=== PATIENT | female | born 1940 | race Caucasian/White ===

== ENCOUNTER 2023-05-24 11:55 | Outpatient (RCR) | payer MEDICARE, OTHER, SELFPAY | END 2023-05-24 23:59 | disposition home or self-care (01) | LOC: RPT 11:55 | PROVIDERS: ATTENDING PHYSICIAN Physician Assistant; PRIMARYCARE PHYSICIAN Internal Medicine Geriatric Medicine | DX: Z47.1 Aftercare following joint replacement surgery (principal); Z96.642 Presence of left artificial hip joint; R26.89 Other abnormalities of gait and mobility; Z73.6 Limitation of activities due to disability | CPT/HCPCS: 97110; 97112; 97116; 97530 ==

== ENCOUNTER 2023-06-20 09:59 | Outpatient (RCR) | payer MEDICARE, OTHER, SELFPAY | END 2023-06-20 23:59 | disposition home or self-care (01) | LOC: RPT 09:59 | PROVIDERS: ATTENDING PHYSICIAN Physician Assistant; PRIMARYCARE PHYSICIAN Internal Medicine Geriatric Medicine | DX: Z47.1 Aftercare following joint replacement surgery (principal); R26.89 Other abnormalities of gait and mobility; Z73.6 Limitation of activities due to disability; M62.81 Muscle weakness (generalized); M25.552 Pain in left hip; Z96.642 Presence of left artificial hip joint | CPT/HCPCS: 97110; 97112 ==

== ENCOUNTER 2023-07-13 09:54 | Outpatient (RCR) | payer MEDICARE, OTHER, SELFPAY | END 2023-07-13 13:49 | disposition home or self-care (01) | LOC: RPT 09:54 | PROVIDERS: ATTENDING PHYSICIAN Physician Assistant; PRIMARYCARE PHYSICIAN Internal Medicine Geriatric Medicine | DX: Z47.1 Aftercare following joint replacement surgery (principal); R26.89 Other abnormalities of gait and mobility; Z73.6 Limitation of activities due to disability; Z96.642 Presence of left artificial hip joint | CPT/HCPCS: 97110; 97112 ==

== ENCOUNTER → 2023-07-24 12:59 | Outpatient (REF) | payer MEDICARE, OTHER, SELFPAY ==
[2023-07-24 13:46] LABS: Urine Albumin Negative (Neg - Trace); Urine Bilirubin Negative (Negative); Urine Character Slightly Cloudy (Clear); Urine Color Yellow; Urine Glucose Negative (Negative); Urine Ketone Negative (Negative); Urine Leukocyte 2+ (Negative); Urine Nitrite Positive (Negative); Urine Occult Blood 1+ (Negative); Urine Urobilinogen Negative (Neg - 1+)
[2023-07-24 14:14] LABS: Urine Squamous Cell >30 /LPF (Few)
[2023-07-24 14:15] LABS: Urine Urothelial Cell 0-2 /LPF (FEW)
[2023-07-24 14:16] LABS: Urine Bacteria Many (Negative)
== END ==
LOC: CLAB 12:59
PROVIDERS: ATTENDING PHYSICIAN Urology
DX: N30.01 Acute cystitis with hematuria (principal)
CPT/HCPCS: 81003; 81015; 87086

== ENCOUNTER 2023-09-27 06:20 | Day surgery (SDC) | payer MEDICARE, OTHER, SELFPAY ==
[2023-09-27 08:55] VITALS: BMI 32.0
[2023-09-27 09:05] VITALS: BP 159/84
[2023-09-27 09:13] VITALS: BMI 32.0
[2023-09-27 12:26] VITALS: BP 142/70
[2023-09-27 12:30] VITALS: BP 137/77
[2023-09-27 12:45] VITALS: BP 155/89
[2023-09-27 13:00] VITALS: BP 175/89
[2023-09-27 13:02] VITALS: BP 152/84
== END 2023-09-27 13:18 | disposition home or self-care (01) ==
LOC: SDS 06:20
PROVIDERS: ATTENDING PHYSICIAN Internal Medicine Gastroenterology
DX: Z12.11 Encounter for screening for malignant neoplasm of colon (principal); D12.4 Benign neoplasm of descending colon; D12.5 Benign neoplasm of sigmoid colon; K57.30 Diverticulosis of large intestine without perforation or abscess without bleeding; K64.0 First degree hemorrhoids; Q43.8 Other specified congenital malformations of intestine; Z86.010 Personal history of colon polyps; Z79.01 Long term (current) use of anticoagulants; Z98.890 Other specified postprocedural states
CPT/HCPCS: 45385; 88305

== ENCOUNTER → 2023-10-04 10:37 | Outpatient (REF) | payer MEDICARE, OTHER, SELFPAY ==
[2023-10-04 11:59] LABS: % Basophils 0.9 % (0-2); % Eosinophils 2.6 % (0-6); % Immature Granulocytes 0.3 % (0-0.5); % Lymphocytes 19.9 % (20.5-51.1); % Monocytes 10.4 % (1.7-9.3); % Neutrophils 65.9 % (42.2-75.2); Absolute Basophils 0.1 10^3/uL (0-0.2); Absolute Eosinophils 0.2 10^3/uL (0-0.7); Absolute Lymphocytes 1.3 10^3/uL (1.2-3.4); Absolute Monocytes 0.7 10^3/uL (0.1-0.6); Absolute Neutrophils 4.3 10^3/uL (1.4-6.5); Hematocrit 38.3 % (37.0-47.0); Hemoglobin 12.4 g/dL (12.0-16.0); Mean Corp Hgb Conc. 32.4 g/dL (33.0-37.0); Mean Corpuscular Hgb 30.2 pg (27.0-31.0); Mean Corpuscular Volume 93.2 fL (81.0-99.0); Mean Platelet Volume 10.1 fL (7.4-10.4); Nucleated Red Blood Cells % 0 %; Platelet Count 269 10^3/uL (130-400); Red Blood Cell Count 4.11 10^6/uL (4.20-5.40); Red Cell Dist. Width 13.4 % (11.5-14.5); White Blood Cell Count 6.5 10^3/uL (4.8-10.8)
[2023-10-04 12:21] LABS: ALT (SGPT) 24 U/L (0-35); AST (SGOT) 31 U/L (14-36); Albumin 4.4 g/dl (3.5-5.0); Alkaline Phosphatase 94 U/L (38-126); Blood Urea Nitrogen 18 mg/dl (7-17); Calcium 10.2 mg/dl (8.4-10.2); Carbon Dioxide 26 mmol/L (22-30); Chloride 107 mmol/L (98-107); Glucose 114 mg/dl (70-99); HDL Cholesterol 53 mg/dl; LDL Cholesterol, Calculated 58 mg/dl; Potassium 5.1 mmol/L (3.5-5.1); Sodium 138 mmol/L (135-145); Total Bilirubin 0.6 mg/dl (0.2-1.3); Total Cholesterol 126 mg/dl (50-199); Total Protein 7.1 g/dl (6.3-8.2); Triglyceride 78 mg/dl (10-149); Very Low Density Lipoprotein 15 mg/dl (0-30); eGFR > 60.00
[2023-10-04 12:53] LABS: Vitamin D, 25-OH*** 43.6 ng/mL (30-80)
[2023-10-04 13:20] LABS: Glycohemoglobin (HgbA1c) 5.7 % (4.0-5.6)
[2023-10-04 18:05] LABS: Urine Albumin Trace (Neg - Trace); Urine Bilirubin 1+ (Negative); Urine Character Clear (Clear); Urine Color Yellow; Urine Glucose Negative (Negative); Urine Ketone Trace (Negative); Urine Leukocyte 2+ (Negative); Urine Nitrite Negative (Negative); Urine Occult Blood 4+ (Negative); Urine Specific Gravity 1.025 (<1.030); Urine Urobilinogen Negative (Neg - 1+)
[2023-10-04 18:13] LABS: Urine Squamous Cell >30 /LPF (Few)
[2023-10-04 18:14] LABS: Urine Bacteria Moderate (Negative); Urine Red Blood Cell >100 /HPF (0-2); Urine White Cell 21-25 /HPF (0-5)
== END ==
LOC: REG 10:37
PROVIDERS: ATTENDING PHYSICIAN Internal Medicine Geriatric Medicine
DX: E66.01 Morbid (severe) obesity due to excess calories (principal); E78.2 Mixed hyperlipidemia; R60.0 Localized edema; G47.00 Insomnia, unspecified; Z85.820 Personal history of malignant melanoma of skin; I48.0 Paroxysmal atrial fibrillation; I11.9 Hypertensive heart disease without heart failure; Z96.641 Presence of right artificial hip joint; Z13.89 Encounter for screening for other disorder; R26.89 Other abnormalities of gait and mobility; E55.9 Vitamin D deficiency, unspecified; R73.01 Impaired fasting glucose; Z91.81 History of falling; I10 Essential (primary) hypertension
CPT/HCPCS: 36415; 80053; 80061; 81003; 81015; 82306; 83036; 85025

== ENCOUNTER → 2023-10-29 12:54 | Outpatient (REF) | payer MEDICARE, OTHER, SELFPAY | LOC: HWRAD 12:54 | PROVIDERS: ATTENDING PHYSICIAN Urology; FAMILY PHYSICIAN Internal Medicine Geriatric Medicine | DX: R33.9 Retention of urine, unspecified (principal) | CPT/HCPCS: 76775 ==

== ENCOUNTER 2024-02-11 06:11 | Day surgery (SDC) | payer MEDICARE, OTHER, SELFPAY ==
[2024-02-07 10:45] VITALS: BMI 30.9
--- NOTE | 2024-02-07 11:28 | PTCARENOTE ---
Patients 02/06 UA abnormal- + Nitrates, Many Bacteria, 11-15 WBC- Rebecca @ Dr. Marcano office notified
--- NOTE | 2024-02-08 11:50 | PTCARENOTE ---
Patients UA C&S + with Rebecca Segundo Dr. office notified.
[2024-02-11 06:08] VITALS: BMI 30.9
[2024-02-11 06:09] VITALS: BP 165/95
[2024-02-11] MEDS: NORMOSOL-R/PLASMALYTE-A 1000 IV (06:40)
[2024-02-11 08:18] VITALS: BP 127/67
[2024-02-11 08:30] VITALS: BP 128/63
[2024-02-11 08:45] VITALS: BP 131/80
[2024-02-11 08:57] VITALS: BP 129/78
== END 2024-02-11 09:15 | disposition home or self-care (01) ==
LOC: SDS 06:11
PROVIDERS: ATTENDING PHYSICIAN Urology; FAMILY PHYSICIAN Internal Medicine Geriatric Medicine
DX: T83.190A Other mechanical complication of urinary electronic stimulator device, initial encounter (principal); Y82.8 Other medical devices associated with adverse incidents; R33.9 Retention of urine, unspecified; N39.490 Overflow incontinence
CPT/HCPCS: 64590; 64561; 72170; 76000; C1767; C1778; C1787; L8681

== ENCOUNTER → 2024-03-25 11:11 | Outpatient (REF) | payer MEDICARE, OTHER, SELFPAY ==
[2024-03-25 16:53] LABS: Urine Albumin Negative (Neg - Trace); Urine Bilirubin Negative (Negative); Urine Character Clear (Clear); Urine Color Yellow; Urine Glucose Negative (Negative); Urine Ketone Negative (Negative); Urine Leukocyte Trace (Negative); Urine Nitrite Positive (Negative); Urine Occult Blood Negative (Negative); Urine Urobilinogen Negative (Neg - 1+)
[2024-03-25 17:18] LABS: Urine Red Blood Cell 0-2 /HPF (0-2); Urine Squamous Cell 16-20 /LPF (Few)
[2024-03-25 17:19] LABS: Urine Bacteria Many (Negative); Urine White Cell 0-2 /HPF (0-5); Urine Yeast Few (Negative)
== END ==
LOC: CLAB 11:11
PROVIDERS: ATTENDING PHYSICIAN Nurse Practitioner
DX: N39.0 Urinary tract infection, site not specified (principal)
CPT/HCPCS: 81003; 81015; 87077; 87086; 87186

== ENCOUNTER → 2024-04-18 12:32 | Outpatient (REF) | payer MEDICARE, OTHER, SELFPAY | LOC: WDC 12:32 | PROVIDERS: ATTENDING PHYSICIAN Internal Medicine Geriatric Medicine | DX: Z12.31 Encounter for screening mammogram for malignant neoplasm of breast (principal) | CPT/HCPCS: 77063; 77067 ==

== ENCOUNTER → 2024-05-01 09:32 | Outpatient (REF) | payer MEDICARE, OTHER, SELFPAY | LOC: WDC 09:32 | PROVIDERS: ATTENDING PHYSICIAN Internal Medicine Geriatric Medicine | DX: R92.8 Other abnormal and inconclusive findings on diagnostic imaging of breast (principal) | CPT/HCPCS: 76642 ==

== ENCOUNTER → 2024-06-03 13:11 | Outpatient (REF) | payer MEDICARE, OTHER, SELFPAY ==
[2024-06-03 17:34] LABS: Urine Albumin Trace (Neg - Trace); Urine Bilirubin Negative (Negative); Urine Character Clear (Clear); Urine Color Yellow; Urine Glucose Negative (Negative); Urine Ketone Negative (Negative); Urine Leukocyte Trace (Negative); Urine Nitrite Positive (Negative); Urine Occult Blood 1+ (Negative); Urine Urobilinogen Negative (Neg - 1+)
[2024-06-03 17:48] LABS: Urine Bacteria Many (Negative); Urine Red Blood Cell 0-2 /HPF (0-2)
== END ==
LOC: CLAB 13:11
PROVIDERS: ATTENDING PHYSICIAN Nurse Practitioner
DX: N39.0 Urinary tract infection, site not specified (principal)
CPT/HCPCS: 81003; 81015; 87077; 87086; 87186

== ENCOUNTER → 2024-08-12 08:35 | Outpatient (REF) | payer MEDICARE, OTHER, SELFPAY ==
[2024-08-12 09:57] LABS: % Eosinophils 2.5 % (0-6); % Immature Granulocytes 0.1 % (0-0.5); % Lymphocytes 21.1 % (20.5-51.1); % Monocytes 9.9 % (1.7-9.3); % Neutrophils 65.4 % (42.2-75.2); Absolute Basophils 0.1 10^3/uL (0-0.2); Absolute Eosinophils 0.2 10^3/uL (0-0.7); Absolute Lymphocytes 1.4 10^3/uL (1.2-3.4); Absolute Monocytes 0.7 10^3/uL (0.1-0.6); Absolute Neutrophils 4.4 10^3/uL (1.4-6.5); Hematocrit 43.9 % (37.0-47.0); Hemoglobin 14.4 g/dL (12.0-16.0); Mean Corp Hgb Conc. 32.8 g/dL (33.0-37.0); Mean Corpuscular Hgb 30.2 pg (27.0-31.0); Mean Platelet Volume 9.8 fL (7.4-10.4); Nucleated Red Blood Cells % 0 %; Platelet Count 268 10^3/uL (130-400); Red Blood Cell Count 4.77 10^6/uL (4.20-5.40); Red Cell Dist. Width 13.2 % (11.5-14.5); White Blood Cell Count 6.7 10^3/uL (4.8-10.8)
[2024-08-12 10:42] LABS: Blood Urea Nitrogen 22 mg/dl (7-17); Calcium 10.7 mg/dl (8.4-10.2); Carbon Dioxide 28 mmol/L (22-30); Chloride 100 mmol/L (98-107); Glucose 105 mg/dl (70-99); HDL Cholesterol 55 mg/dl; LDL Cholesterol, Calculated 90 mg/dl; Potassium 4.5 mmol/L (3.5-5.1); Sodium 139 mmol/L (135-145); Total Cholesterol 163 mg/dl (50-199); Triglyceride 90 mg/dl (10-149); Very Low Density Lipoprotein 18 mg/dl (0-30); eGFR > 60.00
== END ==
LOC: REG 08:35
PROVIDERS: ATTENDING PHYSICIAN Internal Medicine Cardiovascular Disease; FAMILY PHYSICIAN Internal Medicine Geriatric Medicine
DX: I25.10 Atherosclerotic heart disease of native coronary artery without angina pectoris (principal)
CPT/HCPCS: 36415; 80048; 80061; 85025

== ENCOUNTER 2025-02-15 12:14 | Emergency (ER) | payer MEDICARE, OTHER, SELFPAY ==
--- NOTE | 2025-02-15 13:13 | ED.GENMED ---
History of Present Illness
General
Chief Complaint: Catheter/Tube Problem
Time Seen by Provider: 02/15/25 12:35
History of Present Illness
History of Present Illness:
84-year-old female presents to the emergency department for evaluation of a clogged has a chronic indwelling Love that is changed on a monthly basis, was last exchanged just over 3 weeks ago. Love has not drained all night. She is reporting
intense suprapubic discomfort and leakage from the urethra around the catheter. Noted to be markedly hypertensive in triage but denies headaches or vision changes
Past History
Past History
ED Past Medical History: Cancer and Hypercholesterolemia
ED Past Surgical History: Gynecological and Other (L breast sx)
Social History
Tobacco: Non-smoker
Personal:
Living: with family
Review of Systems
Review of Systems
Allergies reviewed?: Yes
All Other Systems: ROS reviewed and negative except as documented in HPI and ROS
Phy Exam
Physical Exam
Physical Exam:
GEN: Well appearing, NAD, WDWN
HEENT: Oral mucosa moist, no scleral icterus
Cardiac: Regular rate
Lung: No respiratory distress, no tachypnea
MSK: No gross deformity or injuries
Skin: Good color, no pallor or jaundice, no rashes
Neuro: AO x3, moves all extremities freely
Psych: Calm, cooperative
Course
Orders/Labs/Results
Orders:
Orders
02/15/25 12:43
Love Placement- Treatment ONCE
Reason for insertion: Acute Retention
02/15/25 13:03
Urine Culture Urgent
MICHELLE Source: Urine
Specimen Description:
Obtained by: Indwelling Catheter
Date Specimen was Collected: 02/15/25
Time Specimen was Collected: 13:02
Vital Signs
Initial and Last Documented VS:
Initial Vital Signs
Temp Pulse Resp BP Pulse Ox
97.2 F 82 16 223/126 95
02/15/25 12:18 02/15/25 12:18 02/15/25 12:18 02/15/25 12:18 02/15/25 12:18
Last Documented Vital Signs
Temp Pulse Resp BP Pulse Ox
97.2 F 82 16 138/68 95
02/15/25 12:18 02/15/25 12:18 02/15/25 12:18 02/15/25 14:19 02/15/25 13:14
MDM/Problems Addressed
MDM/Problems Addressed:
Love exchanged with output of greater than 800 mL. Will cover her with prophylactic antibiotic X, urine culture will be sent for completeness, she will follow-up with her urologist as needed
*Pulse Oximetry
SaO2: 95
Oxygen Mode of Delivery: Room air
Patient hypoxic: no
*Critical Care Note
Total Time (30-74mins, 75-104mins- exclusive of procedures): Not Applicable
ED Attending Note
-
Portions of this chart may have been created with voice recognition software.� Occasional wrong word or��sound alike� substitutions may have occurred due to the inherent limitations of voice recognition software.
Discharge Plan
Departure
Patient Disposition: Home (Routine Discharge)
Date of Disposition: 02/15/25
Time of Disposition: 14:19
Patient with high blood pressure during this ER visit?: No
Discharge Problem:
Complication, blocked Love catheter
Instructions: How to Care for Your Love Catheter
Prescriptions:
New
cephalexin 500 mg capsule
500 mg PO BID 7 Days Qty: 14 0RF
No Action
aspirin 81 mg Tablet,Chewable
81 mg PO BID
ezetimibe 10 mg Tablet
10 mg PO HS
mirtazapine 7.5 mg Tablet
7.5 mg PO HS
atorvastatin 10 mg Tablet
10 mg PO DAILY
docusate sodium 100 mg Capsule
100 mg PO BID Qty: 30 0RF
metoprolol succinate 50 mg tablet extended release 24 hr
50 mg PO DAILY Qty: 30 0RF
Rx Instructions:
Take daily starting 01/05/23.
acetaminophen [Acetaminophen Extra Strength] 500 mg tablet
1,000 mg PO Q6H Qty: 60 0RF
Rx Instructions:
DO NOT exceed >4000 mg daily.
acetaminophen-codeine 300-30 mg Tablet
1 - 2 tab PO Q6H PRN (Reason: post op pain)
cephalexin 500 mg Capsule
500 mg PO BID
Eliquis 5 mg Tablet
5 mg PO BID
Referrals:
Vamsi Ramirez MD [Family Provider, Internal Medicine]
Interventions
Interventions:
*Risk Screen - Suicide Last Done: 02/15/25 12:19
*General Assessment Last Done: 02/15/25 13:19
*Neglect/Abuse Screening Last Done: 02/15/25 12:19
*ED- Fall Risk Assessment Last Done: 02/15/25 13:19
*ED COVID-19 Vaccine History Last Done: 02/15/25 13:19
YW-Hagtcp-Wjarzqawth Assessment Last Done: 02/15/25 13:19
ED-Female Genitourinary Assessment Last Done: 02/15/25 13:19
Discharge Date and Time
Print Language: TONGAN
== END 2025-02-15 15:10 | disposition home or self-care (01) ==
LOC: EMR 12:14
PROVIDERS: EMERGENCY PHYSICIAN Emergency Medicine; FAMILY PHYSICIAN Internal Medicine Geriatric Medicine
DX: T83.091A Other mechanical complication of indwelling urethral catheter, initial encounter (principal); R33.9 Retention of urine, unspecified; Y73.8 Miscellaneous gastroenterology and urology devices associated with adverse incidents, not elsewhere classified; E78.00 Pure hypercholesterolemia, unspecified
CPT/HCPCS: 99283; 51702; 87077; 87086; 87186

== ENCOUNTER → 2025-04-21 12:31 | Outpatient (REF) | payer MEDICARE, OTHER, SELFPAY | LOC: WDC 12:31 | PROVIDERS: ATTENDING PHYSICIAN Internal Medicine Geriatric Medicine | DX: Z12.31 Encounter for screening mammogram for malignant neoplasm of breast (principal) | CPT/HCPCS: 77063; 77067 ==